=== PATIENT | female | born 2005 ===

== ENCOUNTER 2025-01-23 20:29 | Emergency (ER) | payer SELFPAY ==
[2025-01-23 20:31] VITALS: BP 163/82; PULSE 130; RESP 18; TEMP 36.9; O2SAT 98
[2025-01-23 20:32] VITALS: PULSE 98; RESP 22; O2SAT 99
[2025-01-23 20:34] VITALS: BMI 20.7
--- NOTE | 2025-01-23 20:37 | PC.OT ---
PER EMS [facility] WAS ON SCENE WHEN PATIENT WAS PICKED UP BY [facility]. REPORT HAS BEEN FILED PER EMS.
--- NOTE | 2025-01-23 21:19 | PC.NURSE ---
Pt did not answer when name was called and was not found outside.
--- NOTE | 2025-01-23 21:20 | PC.NURSE ---
PT WAS AT OUTSIDE ER, PT INFORMED ME THAT SHE DOES NOT WANT TO BE SEEN ANYMORE, SEEN GETTING INTO A CAR AND LEAVING.
== END 2025-01-23 21:21 | disposition left against medical advice (07) ==
LOC: SERX 21:40
PROVIDERS: Emergency Provider Emergency Medicine
DX: Z53.21 Procedure and treatment not carried out due to patient leaving prior to being seen by health care provider (principal)
CPT/HCPCS: 99281